=== PATIENT | male | born 1990 | race Caucasian/White ===

== ENCOUNTER 2019-10-27 17:04 | Emergency (ER) | payer OTHER ==
[~2019-10-27] VITALS: Ht 177.8 cm; Wt 70.5 kg
[2019-10-27 17:11] VITALS: BP 137/77; TEMP 97.8
[2019-10-27] MEDS ORDERED: CEPHALEXIN500 M1 PO (19:34)
[2019-10-27 20:00] VITALS: PULSE 82
[2019-10-28] MEDS ORDERED: NORCO 325 MG-51 TAB PO (06:57)
== END 2019-10-27 20:04 | disposition home or self-care (01) ==
LOC: EDBD 17:04 → COL.ER 17:04
DX: S66.822A Laceration of other specified muscles, fascia and tendons at wrist and hand level, left hand, initial encounter (principal); Z23 Encounter for immunization; F17.210 Nicotine dependence, cigarettes, uncomplicated; W20.8XXA Other cause of strike by thrown, projected or falling object, initial encounter

== ENCOUNTER → 2019-11-06 | Outpatient (CLI) | payer OTHER ==
[~2019-11-06] MED LIST: CEPHALEXIN500 M1 PO; NORCO 325 MG-51 TAB PO
[2019-11-06 10:17] VITALS: BP 144/86; PULSE 85; TEMP 98.7
== END ==
LOC: COL.ER 10:12
DX: Z48.02 Encounter for removal of sutures (principal)